=== PATIENT | male | born 1970 | race Caucasian/White ===

== ENCOUNTER 2020-08-25 09:10 | Outpatient (CLI) | payer OTHER ==
[~2020-08-25] VITALS: Ht 172.7 cm; Wt 97.3 kg
[2020-08-25] MEDS ORDERED: EPINEPHrine INJECTION 1 MG/ML AMP IM PRN (09:30)
[2020-08-25] MEDS ORDERED: CASIRIVIMAB/IMDEVIMAB 1,200 MG in NS (IVPB) 250 ML IV ONE (09:30)
[2020-08-25] MEDS ORDERED: diphenhydrAMINE 50 MG/ML INJ (BENADRYL) IV PRN (09:30)
[2020-08-25 10:40] VITALS: BP 103/52
== END 2020-08-25 11:40 | disposition home or self-care (01) ==
LOC: INFUSION 09:10
DX: Z23 Encounter for immunization (principal); U07.1 COVID-19

== ENCOUNTER 2022-08-29 14:28 | Emergency (ER) | payer OTHER ==
[~2022-08-29] VITALS: Ht 172.7 cm; Wt 97.3 kg
--- NOTE | 2022-08-29 14:40 | ED General ---
General Chief Complaint: - Reproductive Stated Complaint: KIDNEY STONE | ABD PAIN Source of Information: Patient Exam Limitations: No Limitations History of Present Illness Date Seen by Provider: Aug 29, 2022 Time Seen by Provider: 14:31 Initial Comments 52-year-old male presents emerged department today for left flank pain. Sympto ms present since Friday. They are intermittent but sharp and stabbing with a dull component when there. It does occasionally radiate to his left groin. He has a remote, 20 years ago, history of kidney stones. No hematuria, dysuria. No changes in his bowels. No nausea or vomiting. No fevers or chills. No chest pain or shortness of breath. All other systems reviewed and negative except documented per HPI. Voice recognition software was used to help create this chart Allergies and Home Medications Allergies Coded Allergies: No Known Drug Allergies (Unverified , 08/29/22) Patient Home Medication List Home Medication List Reviewed: Yes Review of Systems Review of Systems Constitutional: see HPI Past Iamexbg-[id number]-[id number] Hx Patient Social History Tobacco Use?: No Use of E-Cig and/or Vaping dev: No Substance use?: No Alcohol Use?: Yes Alcohol type: Beer Alcohol Frequency: Once in a while Pt feels they are or have been: No Immunizations Up To Date First/Initial COVID19 Vaccinat: "2 shots" Past Medical History Surgery/Hospitalization HX: kidney stone, denies surg Physical Exam Vital Signs Vital Signs - First Documented 08/29/22 14:36 Temp 36.0 Pulse 66 Resp 16 B/P (MAP) 165/97 (119) Pulse Ox 96 O2 Delivery Room Air Capillary Refill : Height, Weight, BMI Height: '" Weight: lbs. oz. kg; BMI Method: General Appearance: No Apparent Distress, WD/WN HEENT: Normal ENT Inspection, Pharynx Normal Neck: Full Range of Motion, Non Tender, Supple Respiratory: Chest Non Tender, Lungs Clear, Normal Breath Sounds, No Accessory Muscle Use, No Respiratory Distress Cardiovascular: Regular Rate, Rhythm, No JVD, No Murmur, Normal Peripheral Pulses Gastrointestinal: Normal Bowel Sounds, No Organomegaly, Non Tender, Soft Back: Normal Inspection, No Vertebral Tenderness, CVA Tenderness (L) Neurologic/Psychiatric: Alert, Oriented x3, Normal Mood/Affect Skin: Normal Color, Warm/Dry Progress/Results/Core Measures Suspected Sepsis SIRS Temperature: Pulse: Respiratory Rate: Laboratory Tests 08/29/22 14:42: White Blood Count 9.6 Blood Pressure / Mean: Laboratory Tests 08/29/22 14:42: Creatinine 1.01, Platelet Count 162, Total Bilirubin 0.4 Results/Orders Lab Results Laboratory Tests Test 08/29/22 14:42 08/29/22 15:20 Range/Units White Blood Count 9.6 4.3-11.0 10^3/uL Red Blood Count 5.79 H 4.30-5.52 10^6/uL Hemoglobin 17.1 13.3-17.7 g/dL Hematocrit 51 40-54 % Mean Corpuscular Volume 88 80-99 fL Mean Corpuscular Hemoglobin 30 25-34 pg Mean Corpuscular Hemoglobin Concent 34 32-36 g/dL Red Cell Distribution Width 12.6 10.0-14.5 % Platelet Count 162 130-400 10^3/uL Mean Platelet Volume 11.0 9.0-12.2 fL Immature Granulocyte % (Auto) 1 % Neutrophils (%) (Auto) 65 42-75 % Lymphocytes (%) (Auto) 28 12-44 % Monocytes (%) (Auto) 6 0-12 % Eosinophils (%) (Auto) 1 0-10 % Basophils (%) (Auto) 0 0-10 % Neutrophils # (Auto) 6.2 1.8-7.8 10^3/uL Lymphocytes # (Auto) 2.7 1.0-4.0 10^3/uL Monocytes # (Auto) 0.5 0.0-1.0 10^3/uL Eosinophils # (Auto) 0.1 0.0-0.3 10^3/uL Basophils # (Auto) 0.0 0.0-0.1 10^3/uL Immature Granulocyte # (Auto) 0.1 0.0-0.1 10^3/uL Sodium Level 139 135-145 MMOL/L Potassium Level 3.7 3.6-5.0 MMOL/L Chloride Level 107 98-107 MMOL/L Carbon Dioxide Level 23 21-32 MMOL/L Anion Gap 9 5-14 MMOL/L Blood Urea Nitrogen 11 7-18 MG/DL Creatinine 1.01 0.60-1.30 MG/DL Estimat Glomerular Filtration Rate 90 BUN/Creatinine Ratio 11 Glucose Level 130 H 70-105 MG/DL Calcium Level 9.2 8.5-10.1 MG/DL Corrected Calcium 9.0 8.5-10.1 MG/DL Total Bilirubin 0.4 0.1-1.0 MG/DL Aspartate Amino Transf (AST/SGOT) 16 5-34 U/L Alanine Aminotransferase (ALT/SGPT) 20 0-55 U/L Alkaline Phosphatase 84 40-136 U/L Troponin I < 0.028 <0.028 NG/ML Total Protein 7.3 6.4-8.2 GM/DL Albumin 4.2 3.2-4.5 GM/DL Lipase 31 8-78 U/L Urine Color YELLOW Urine Clarity CLEAR Urine pH 5.5 5-9 Urine Specific [place] 1.025 H 1.016-1.022 Urine Protein NEGATIVE NEGATIVE Urine Glucose (UA) TRACE H NEGATIVE Urine Ketones NEGATIVE NEGATIVE Urine Nitrite NEGATIVE NEGATIVE Urine Bilirubin NEGATIVE NEGATIVE Urine Urobilinogen 0.2 < = 1.0 MG/DL Urine Leukocyte Esterase NEGATIVE NEGATIVE Urine RBC (Auto) TRACE-I H NEGATIVE Urine RBC 0-2 /HPF Urine WBC 0-2 /HPF Urine Crystals PRESENT H /LPF Urine Amorphous Sediment RARE ZHAO URATES H /LPF Urine Bacteria TRACE /HPF Urine Casts PRESENT /LPF Urine Hyaline Casts 0-2 H /LPF Urine Mucus SMALL H /LPF Urine Culture Indicated NO My Orders Orders - JENNIFER GALLARDO DO Lipase (08/29/22 14:37) Cbc With Automated Diff (08/29/22 14:37) Comprehensive Metabolic Panel (08/29/22 14:37) Ct Abdomen/Pelvis Wo (08/29/22 14:37) Fentanyl Inj (Sublimaze Injection) (08/29/22 14:45) Ketorolac Injection (Toradol Injection) (08/29/22 14:45) Troponin I Mora (08/29/22 15:17) Ekg Tracing (08/29/22 15:17) Ct Angio Chest W (08/29/22 15:17) Ua Culture If Indicated (08/29/22 15:19) Iohexol Injection (Omnipaque 350 Mg/Ml 1 (08/29/22 15:45) Received Contrast (Hold Metformin- Contr (08/29/22 15:45) Ns (Ivpb) (Sodium Chloride 0.9% Ivpb Bag (08/29/22 15:45) Medications Given in ED Current Medications Medications Dose Ordered Sig/Zakia Route Start Time Stop Time Status Last Admin Dose Admin Fentanyl Citrate 50 mcg ONCE ONCE IVP 08/29/22 14:45 08/29/22 14:46 DC 08/29/22 14:47 50 MCG Iohexol 100 ml ONCE ONCE IV 08/29/22 15:45 08/29/22 15:46 DC 08/29/22 15:48 81 ML Ketorolac Tromethamine 15 mg ONCE ONCE IVP 08/29/22 14:45 08/29/22 14:46 DC 08/29/22 14:48 15 MG Sodium Chloride 100 ml ONCE ONCE IV 08/29/22 15:45 08/29/22 15:46 DC 08/29/22 15:48 80 ML Vital Signs/I&O 08/29/22 14:36 Temp 36.0 Pulse 66 Resp 16 B/P (MAP) 165/97 (119) Pulse Ox 96 O2 Delivery Room Air Capillary Refill : ECG Comment Sinus rhythm at 73 bpm. Occasional premature atrial contractions. Normal intervals. Normal axis. No ST or T wave abnormalities. No STEMI. Departure Communication (Admissions) Initial concern for kidney stone is present has a history and pain from his left flank was radiating into his groin some. CT scan shows no evidence of kidney stone. I then undertook cardiopulmonary work-up to ensure he were not missing anything. EKG is nonischemic, troponins negative. Independently reviewed the CT angiography of the chest I do not see any obvious pulmonary embolus. Radiology read agrees. His pain is resolved with the IV Toradol and fentanyl early on in his course and he has not had a recurrence. This does not appear to be from an emergent medical condition at this time. He is discharged home in stable condition with supportive care and close follow-up. Impression Primary Impression: Left flank pain Disposition: 01 HOME, SELF-CARE Condition: Stable Departure-Patient Inst. Referrals: JESSICA POWELL MD (PCP/Family) Primary Care Physician Patient Instructions: Flank Pain ED Add. Discharge Instructions: No emergent medical condition is identified for your symptoms today. Is unclear what this is however it does not seem to be a serious medical condition at this time. I recommend you follow-up with your primary doctor for further evaluation and treat recommendations should your symptoms persist. Return to the emergency department if your symptoms change in any way concerning to you or become sever e. All discharge instructions reviewed with patient and/or family. Voiced understanding. Scripts Ketorolac Tromethamine (Ketorolac Tromethamine) 10 Mg Tablet 10 MG PO TID for Pain for 3 Days, #9 TAB Prov: JENNIFER GALLARDO DO 08/29/22 JENNIFER GALLARDO DO Aug 29, 2022 14:40
[2022-08-29] MEDS ORDERED: fentaNYL INJ 100 MCG/2 ML AMP IVP ONE (14:45)
[2022-08-29] MEDS ORDERED: KETOROLAC 15 MG/ML VIAL IVP ONE (14:45)
[2022-08-29 14:48] LABS: BASOPHILS % (AUTO) 0 % (0-10); EOSINOPHILS # (AUTO) 0.1 10^3/uL (0.0-0.3); EOSINOPHILS % (AUTO) 1 % (0-10); HEMATOCRIT 51 % (40-54); HEMOGLOBIN 17.1 g/dL (13.3-17.7); LYMPHOCYTES # (AUTO) 2.7 10^3/uL (1.0-4.0); LYMPHOCYTES % (AUTO) 28 % (12-44); MEAN CORPUSCULAR HEMOGLOBIN 30 pg (25-34); MEAN CORPUSCULAR HGB CONC 34 g/dL (32-36); MEAN CORPUSCULAR VOLUME 88 fL (80-99); MONOCYTES # (AUTO) 0.5 10^3/uL (0.0-1.0); MONOCYTES % (AUTO) 6 % (0-12); NEUTROPHILS # (AUTO) 6.2 10^3/uL (1.8-7.8); NEUTROPHILS % (AUTO) 65 % (42-75); PLATELET COUNT 162 10^3/uL (130-400); WHITE BLOOD COUNT 9.6 10^3/uL (4.3-11.0)
[2022-08-29 15:00] LABS: ALBUMIN 4.2 GM/DL (3.2-4.5); POTASSIUM 3.7 MMOL/L (3.6-5.0)
[2022-08-29 15:02] LABS: CALCIUM 9.2 MG/DL (8.5-10.1)
[2022-08-29 15:03] LABS: TOTAL PROTEIN 7.3 GM/DL (6.4-8.2)
[2022-08-29 15:05] LABS: BILIRUBIN,TOTAL 0.4 MG/DL (0.1-1.0)
[2022-08-29 15:07] LABS: CREATININE SERUM 1.01 MG/DL (0.60-1.30)
--- NOTE | 2022-08-29 15:10 | Diagnostic Imaging Report ---
PROCEDURE: CT abdomen and pelvis without contrast. TECHNIQUE: Multiple contiguous axial images were obtained through the abdomen and pelvis without the use of intravenous contrast. Auto Exposure Controls were utilized during the CT exam to meet ALARA standards for radiation dose reduction. INDICATION: Left-sided abdominal pain. No prior studies are available for comparison. FINDINGS: The lung bases are clear. The liver and gallbladder are unremarkable. No biliary ductal dilatation is identified. The pancreas and spleen are unremarkable. No adrenal mass is detected. There is a tiny nonobstructing calculus in the lower pole of the right kidney. No left-sided renal calculi or ureteral calculi are seen. There is no hydronephrosis. The aorta is nonaneurysmal. The small and large bowel loops are normal in caliber. There is no obstruction. There is no ascites. No inflammatory changes are seen. The bladder and prostate are unremarkable. Bony structures are nonacute. IMPRESSION: Tiny nonobstructing right renal calculus. The study is otherwise unremarkable. No acute feature is identified. Dictated by: Dictated on workstation # [id number]
[2022-08-29 15:35] LABS: BILIRUBIN,URINE NEGATIVE (NEGATIVE); CLARITY,URINE CLEAR; COLOR,URINE YELLOW; GLUCOSE, URINE (UA) TRACE (NEGATIVE); KETONES,URINE NEGATIVE (NEGATIVE); LEUKOCYTE ESTERASE ,URINE NEGATIVE (NEGATIVE); NITRITE,URINE NEGATIVE (NEGATIVE); PH,URINE 5.5 (5-9); PROTEIN,URINE NEGATIVE (NEGATIVE)
[2022-08-29] MEDS ORDERED: HOLD METFORMIN - RECEIVED CONTRAST 20 ML VIAL IV SCH (15:45)
[2022-08-29] MEDS ORDERED: IOHEXOL 350 MG/ML 100 ML (OMNIPAQUE 350) VIAL IV ONE (15:45)
[2022-08-29] MEDS ORDERED: NS 100 ML (IVPB) BAG IV ONE (15:45)
[2022-08-29 16:06] LABS: BACTERIA,URINE TRACE /HPF; RBC,URINE 0-2 /HPF; WBC,URINE 0-2 /HPF
[2022-08-29 16:07] LABS: AMORPHOUS SEDIMENT,UR RARE AMOR URATES /LPF; HYALINE CASTS, URINE 0-2 /LPF
--- NOTE | 2022-08-29 16:16 | Diagnostic Imaging Report ---
EXAMINATION: CT angiography of the chest. TECHNIQUE: Contrast enhanced thin section helical images were obtained through the chest with intravenous contrast timed for the optimal opacification of the arterial structures per CTA protocol. Post-processing, reconstructions and interpretation of angiographic images of the vessels was performed. 3D MIP reconstructions were performed and reviewed. All CT scans use one or more of the following dose optimizing techniques: automated exposure control, MA and/or KvP adjustment based on a patient size and exam type, or iterative reconstruction. HISTORY: Chest pain. COMPARISON: None available. FINDINGS: Vascular: There are no filling defects within the pulmonary arteries. The thoracic aorta is normal in caliber. Thyroid: The thyroid is normal. Mediastinum: Heart size is normal without significant pericardial effusion. No suspicious lymphadenopathy. Lungs and airways: The lungs are clear without consolidation, pleural effusion, or pneumothorax. The airways are normal. Upper abdomen: The subphrenic structures are normal. Musculoskeletal: Degenerative changes of the spine without suspicious osseous lesion or compression fracture. IMPRESSION: 1. No findings of pulmonary embolus or other acute abnormality in the chest. Dictated by: Dictated on workstation # [id number]
[2022-08-29] MEDS ORDERED: KETO10TA PO (16:24)
[2022-08-29 16:34] VITALS: BP 120/80
== END 2022-08-29 16:34 | disposition home or self-care (01) ==
LOC: EDUNIT# 14:28 → ER 14:31
DX: R10.9 Unspecified abdominal pain (principal); Z87.442 Personal history of urinary calculi
CPT/HCPCS: 36415; 71275; 74176; 80053; 81000; 83690; 84484; 85025; 93005